=== PATIENT | male | born 1950 | race Caucasian/White ===

== ENCOUNTER → 2019-03-15 07:31 | Outpatient (CLI) | payer OTHER, MEDICARE, SELFPAY ==
[2019-03-15 08:30] LABS: Hemoglobin A1C% w Est Avg Glu 5.7 % (4.0-6.0)
[2019-03-15 08:35] LABS: Cholesterol 234 mg/dL (140-199); Glucose 109 mg/dL (80-110); HDL Cholesterol 29 mg/dL (40-60); LDL Cholesterol Calculated 153 mg/dL (<100); Triglycerides 261 mg/dL (35-150)
[2019-03-15 08:59] LABS: Prostate Specific Antigen 0.654 ng/mL (0.10-4.00)
== END ==
PROVIDERS: PCP Internal Medicine; Referring Provider Internal Medicine; Visit Provider Internal Medicine
DX: Z00.00 Encounter for general adult medical examination without abnormal findings (principal); R73.01 Impaired fasting glucose; E78.2 Mixed hyperlipidemia; R03.0 Elevated blood-pressure reading, without diagnosis of hypertension
CPT/HCPCS: 36415; 80048; 80061; 82947; 83036; 84153; 84450

== ENCOUNTER 2022-12-29 16:41 | Emergency (ER) | payer MEDICARE, OTHER, SELFPAY ==
[2022-12-29 16:48] VITALS: BP 175/95; PULSE 98; RESP 20; TEMP 37.3; O2SAT 96; BMI 30.8
[2022-12-29] MEDS: KETOROLAC 30 MG/ML VIAL 15 MG IM (17:09)
--- NOTE | 2022-12-29 18:17 | ED_ITS ---
HPI - Neck Pain/Injury General Chief Complaint: Neck Pain/Injury Stated Complaint: Neck pain and stiffness Time Seen by Provider: 12/29/22 17:57 Source: patient Mode of arrival: Family Vehicle Limitations: no limitations History of Present Illness HPI Narrative: 72-year-old male who woke up yesterday morning with discomfort on the left side of his neck. He states that he was able to do things yesterday that he wanted to which included raking quite a bit of rock and then chopping quite a bit of wood. Has a day went on he got quite a bit of neck discomfort. Has on the left side of his neck. No extremity pain. No numbness or tingling his arms and legs. No upper back or lower back discomfort. He did take a Flexeril prior to arrival and also ibuprofen without any improvement. Related Data Home Medications Medication Instructions Recorded Confirmed MULTIVITAMIN 1 cap PO QDAY ##0 03/01/12 OMEGA-3 FATTY ACIDS (#OMEGA-3 2100) 1,050 mg PO ##0 03/01/12 cholecalciferol (vitamin D3) 50 2,000 unit PO QDAY ##0 03/01/12 mcg (2,000 unit) capsule (Vitamin D3) Previous Rx's Medication Instructions Recorded ketorolac 10 mg tablet 10 mg PO Q8H PRN pain 3 days #21 12/29/22 tabs Allergies Allergy/AdvReac Type Severity Reaction Status Date / Time No Known Drug Allergies Allergy Verified 12/29/22 16:55 Review of Systems Constitutional Constitutional: Reports system reviewed and no additional complaints, except as documented Musculoskeletal Musculoskeletal: Reports system reviewed and no additional complaints, except as documented Integumentary/Breasts Skin/Breast: Reports system reviewed and no additional complaints, except as documented Neurologic Neurologic: Reports system reviewed and no additional complaints, except as documented Hematologic/Lymphatic On Anticoagulants: No Patient History Social History Smoking Status: Former smoker Smoking Status: Former smoker tobacco type: cigarettes alcohol intake frequency: holidays/special occasions only Substance Use Type: does not use Exam Initial Vital Signs Initial Vital Signs: Vital Signs Temperature 99.1 F 12/29/22 16:48 Pulse Rate 98 H 12/29/22 16:48 Respiratory Rate 20 12/29/22 16:48 Blood Pressure 175/95 H 12/29/22 16:48 Pulse Oximetry 96 12/29/22 16:48 Oxygen Delivery Method Room Air 12/29/22 16:48 [facility] Head: normal to inspection and normocephalic Back/Spine/Pelvis Cervical Spine: cervical muscular tenderness and No cervical spinal tenderness Thoracic/Lumbar Spine: No paraspinal tenderness and No lumbar spinal tenderness Skin General: no rashes or lesions noted Neuro General: patient alert and moves all extremities Extrem General: capillary refill normal Course Orders Ordered: Discontinued Medications Ketorolac Tromethamine (Ketorolac 30 Mg/Ml Vial) 15 mg IM NOW ONE Stop: 12/29/22 17:02 Last Admin: 12/29/22 17:09 Dose: 15 mg Documented By: BELEN Vital Signs Vital signs: Vital Signs - 8 hr 12/29/22 16:48 12/29/22 18:33 Temperature 99.1 F Pulse Rate 98 H 78 Respiratory Rate 20 16 Blood Pressure 175/95 H Pulse Oximetry 96 99 Oxygen Delivery Method Room Air Room Air MDM - Neck Pain/Injury MDM Narrative Medical decision making narrative: Patient clearly has cervical muscle tenderness on the left side. Low suspicion for fracture. No indication for radiologic studies. He is no radicular symptoms. He reports that his symptoms have improved quite a bit with the Toradol. Patient deny the offer for Flexeril. Did not want any pain medication. 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 He has Mobic at home that he can take this evening. He was given return precautions. He expressed understanding and agreement. Discharge Plan Departure Patient Disposition: Home Clinical Impression: Strain of neck muscle Instructions: Muscle Strain Activity Restrictions/Additional Instructions: I do recommend that you continue with conservative measures such as heat/ice and massage. You can continue with anti-inflammatories. A prescription was sent to [facility]. Return to the emergency department for new symptoms. Prescriptions: New ketorolac 10 mg tablet 10 mg PO Q8H PRN (Reason: pain) 3 Days Qty: 21 0RF No Action MULTIVITAMIN 1 cap PO QDAY Qty: 0 OMEGA-3 FATTY ACIDS (#OMEGA-3 2100) 1,050 mg PO Qty: 0 cholecalciferol (vitamin D3) [Vitamin D3] 2,000 UNIT capsule 2,000 unit PO QDAY Qty: 0 Referrals: Dex Vasquez MD [Primary Care Provider] - Stand Alone Forms: Patient Portal/API
[2022-12-29 18:33] VITALS: PULSE 78; RESP 16; O2SAT 99
== END 2022-12-29 18:34 | disposition home or self-care (01) ==
PROVIDERS: Emergency Provider Emergency Medicine; PCP Internal Medicine
DX: S16.1XXA Strain of muscle, fascia and tendon at neck level, initial encounter (principal); X50.9XXA Other and unspecified overexertion or strenuous movements or postures, initial encounter
CPT/HCPCS: 99283; J1885

== ENCOUNTER 2024-03-21 14:53 | Emergency (ER) | payer MEDICARE, OTHER, SELFPAY ==
[2024-03-21 15:21] VITALS: BP 138/81; PULSE 92; RESP 16; O2SAT 93; BMI 31.4
--- NOTE | 2024-03-21 15:29 | DI.RAD.S_ITS ---
PROCEDURE: XR KNEE LT 3V INDICATIONS: fall TECHNIQUE: 2 views of the knee were acquired. COMPARISON: None. FINDINGS: Bones: There is prior internal fixation of proximal left tibial shaft with surgical hardware in place. No gross hardware loosening or failure. Moderate to severe tricompartmental osteoarthritis is seen most notably in lateral femoral tibial compartment. No acute fracture or dislocation. Soft tissues: Moderate to large suprapatellar joint effusion. No suspicious soft tissue calcifications. IMPRESSION: 1. No gross acute left knee fracture or dislocation. Prior left total knee arthroplasty. No evidence of hardware loosening or failure. 2. Suggestion of healing fracture involving lateral tibial plateau. Moderate to severe tricompartmental osteoarthritis. Large suprapatellar joint effusion. Dictated by: Venkata Larsen M.D. on 03/21/2024 at 16:34 Approved by: Venkata Larsen M.D. on 03/21/2024 at 16:36
--- NOTE | 2024-03-21 15:30 | DI.RAD.S_ITS ---
PROCEDURE: XR TIBIA FIBULA LT 2V INDICATIONS: fall TECHNIQUE: 2 views of the tibia and fibula were acquired. COMPARISON: None. FINDINGS: Bones: Prior ORIF of proximal tibial shaft with healing fracture involving lateral tibial plateau. No gross hardware loosening or failure. No mid to distal lower leg fracture or dislocation. Soft tissues: No suspicious soft tissue calcifications or masses. IMPRESSION: Healing lateral tibial plateau fracture with prior ORIF. No gross hardware loosening or failure. No other fracture or dislocation is seen in left lower leg. Dictated by: Venkata Larsen M.D. on 03/21/2024 at 16:36 Approved by: Venkata Larsen M.D. on 03/21/2024 at 16:37
--- NOTE | 2024-03-21 15:31 | DI.RAD.S_ITS ---
PROCEDURE: XR FEMUR LT MIN 2V INDICATIONS: fall TECHNIQUE: 4 views of the femur were acquired. COMPARISON: None. FINDINGS: Bones: No fractures or dislocations. Left hip and left knee joint osteoarthritic changes are seen. No evidence of avascular necrosis of femoral head. No suspicious bony lesions. Soft tissues: No suspicious soft tissue calcifications or masses. IMPRESSION: No acute left femoral fracture or dislocation. No evidence of avascular necrosis of femoral head. Dictated by: Venkata Larsen M.D. on 03/21/2024 at 16:37 Approved by: Venkata Larsen M.D. on 03/21/2024 at 16:38
--- NOTE | 2024-03-21 15:32 | DI.RAD.S_ITS ---
PROCEDURE: XR SHOULDER RT MIN 2V INDICATIONS: fall TECHNIQUE: 3 views of the shoulder were acquired. COMPARISON: None. FINDINGS: Bones: No fractures or dislocations. [id number] right acromioclavicular joint and glenohumeral joint osteoarthritic changes are seen. No suspicious bony lesions. Visualized ribs appear intact. Soft tissues: No suspicious soft tissue calcifications. IMPRESSION: [id number]-[id number] right shoulder joint osteoarthritis. No fracture or dislocation. No gross soft tissue abnormalities. Dictated by: Venkata Larsen M.D. on 03/21/2024 at 16:38 Approved by: Venkata Larsen M.D. on 03/21/2024 at 16:38
--- NOTE | 2024-03-21 18:20 | ED.LOWEXIN ---
HPI - Extremity Injury (Lower) <Myrtle Bruno PA-C - Last Filed: 03/21/24 21:13> General Chief Complaint: Extremity Injury, Lower Stated Complaint: fall, knee and shoulder px, no blood thinners Time Seen by Provider: 03/21/24 18:19 History of Present Illness HPI Narrative: Mr. Alex Ordonez is a very pleasant 73-year-old male with a past medical history of left knee surgery with hardware 45 years ago who presents to the emergency department for a slip and fall on his left knee and right shoulder that occurred 2 days ago. Patient reports he slipped on ice just in front of his house and he caught himself using his left knee and also extended his right arm causing right shoulder pain. No right hand, wrist, or elbow pain. States of the right shoulder pain is most significant when he abducts his shoulder greater than 90?. Says the left knee is always swollen at baseline however it is more swollen and he has severe pain with bending or moving of the knee but at rest there is no pain. He is not interested in pain medication. He did not hit his head or lose consciousness or sustain any other injuries. No CP, SOB, dizziness, lightheadeness, neck pain, or fevers. Related Data Home Medications Medication Instructions Recorded Confirmed MULTIVITAMIN 1 cap PO QDAY ##0 03/01/12 OMEGA-3 FATTY ACIDS (#OMEGA-3 2100) 1,050 mg PO ##0 03/01/12 cholecalciferol (vitamin D3) 50 2,000 unit PO QDAY ##0 03/01/12 mcg (2,000 unit) capsule (Vitamin D3) Previous Rx's Medication Instructions Recorded methocarbamol 500 mg tablet 500 mg PO TID PRN muscle spasm #14 03/21/24 tabs Allergies Allergy/AdvReac Type Severity Reaction Status Date / Time No Known Drug Allergies Allergy Verified 12/29/22 16:55 Review of Systems <Myrtle Bruno PA-C - Last Filed: 03/21/24 21:13> Review of Systems ROS Unobtainable: All systems reviewed & are unremarkable except as noted in HPI and below Patient History <Myrtle Bruno PA-C - Last Filed: 03/21/24 21:13> Social History Smoking Status: Former smoker Smoking Status: Former smoker tobacco type: cigarettes alcohol intake frequency: holidays/special occasions only Exam <Myrtle Bruno PA-C - Last Filed: 03/21/24 21:13> Narrative Exam Narrative: GENERAL: 73 year old patient appears stated age. Well-developed patient, in no acute distress. HEAD: Atraumatic. Normocephalic. NECK: Trachea midline. Cervical ROM intact. No midline tenderness. CARDIOVASCULAR: Regular rate. Strong radial pulses bilaterally, DP and PT pulses bilaterally. RESPIRATORY: ?Nonlabored respirations. ?Speaking in clear, full sentences. GASTROINTESTINAL: Abdomen soft, non-tender, nondistended. EXTREMITIES: Left knee with significant diffuse edema. Pain with even minimal active or passive flexion of the left knee, generalized tenderness to palpation of anterior left knee but most prominent on the medial aspect of the anterior joint line. Exam limited secondary to pain. No overlying lacerations or breaks in the skin. Positive right-sided empty can test with both weakness and pain in the right shoulder. Patient unable to fully abduct right shoulder. No tenderness to palpation of the shoulder itself. No snuffbox tenderness on the bilateral hands. BACK: No midline spinal tenderness. NEURO: AOx3. ?Clear speech. ?Sensation intact to light touch on the bilateral upper and lower extremities. SKIN: No rash or erythema of visible areas Initial Vital Signs Initial Vital Signs: Vital Signs Pulse Rate 92 H 03/21/24 15:21 Respiratory Rate 16 03/21/24 15:21 Blood Pressure 138/81 03/21/24 15:21 Pulse Oximetry 93 03/21/24 15:21 Oxygen Delivery Method Room Air 03/21/24 15:21 <Mando Kate MD - Last Filed: 03/22/24 05:23> Initial Vital Signs Initial Vital Signs: Vital Signs Pulse Rate 92 H 03/21/24 15:21 Respiratory Rate 16 03/21/24 15:21 Blood Pressure 138/81 03/21/24 15:21 Pulse Oximetry 93 03/21/24 15:21 Oxygen Delivery Method Room Air 03/21/24 15:21 Course <Myrtle Bruno PA-C - Last Filed: 03/21/24 21:13> Orders Ordered: Discontinued Medications Methocarbamol (Methocarbamol 500 Mg Tablet) 1,000 mg PO NOW ONE Stop: 03/21/24 19:39 Last Admin: 03/21/24 19:43 Dose: 1,000 mg Documented By: CIPRIANO Consultations Consultation #1: Discussed case and imaging findings with orthopedic surgeon on-call Dr. Garcia. He reviewed the patient's x-rays and does not suspect an acute fracture of the tibia despite the radiologist interpreting possible healing fracture involving the lateral tibial plateau. Dr. Garcia did explain that even if there was a lateral tibial plateau fracture it would not change the management of this patient. This patient is a candidate appropriate for a total knee replacement on the left side as he has extensive chronic disease. Recommends Naif wrap or brace, supportive care, follow up outpatient. Patient can weight bear as tolerated. Time: 18:50 Vital Signs Vital signs: Vital Signs - 8 hr 03/21/24 15:21 03/21/24 20:06 Pulse Rate 92 H 89 Respiratory Rate 16 16 Blood Pressure 138/81 134/78 Pulse Oximetry 93 95 Oxygen Delivery Method Room Air Room Air <Mando Kate MD - Last Filed: 03/22/24 05:23> Orders Ordered: Discontinued Medications Methocarbamol (Methocarbamol 500 Mg Tablet) 1,000 mg PO NOW ONE Stop: 03/21/24 19:39 Last Admin: 03/21/24 19:43 Dose: 1,000 mg Documented By: CIPRIANO Vital Signs Vital signs: Vital Signs - 8 hr 03/21/24 15:21 03/21/24 20:06 Pulse Rate 92 H 89 Respiratory Rate 16 16 Blood Pressure 138/81 134/78 Pulse Oximetry 93 95 Oxygen Delivery Method Room Air Room Air MDM - Extremity Injury (Lower) <Myrtle Bruno PA-C - Last Filed: 03/21/24 21:13> Medical Records Attestation: I reviewed the patient's medical records. Imaging Data Right Shoulder X-Ray; Left Femur X-Ray; Left Tib/Fib X-Ray; Left Knee X-Ray: Radiologist's Impression: PROCEDURE: XR SHOULDER RT MIN 2V INDICATIONS: fall TECHNIQUE: 3 views of the shoulder were acquired. COMPARISON: None. FINDINGS: Bones: No fractures or dislocations. Vgfe-yq-[id number] right acromioclavicular joint and glenohumeral joint osteoarthritic changes are seen. No suspicious bony lesions. Visualized ribs appear intact. Soft tissues: No suspicious soft tissue calcifications. IMPRESSION: Znvj-xe-ihsyqisg right shoulder joint osteoarthritis. No fracture or dislocation. No gross soft tissue abnormalities. PROCEDURE: XR FEMUR LT MIN 2V INDICATIONS: fall TECHNIQUE: 4 views of the femur were acquired. COMPARISON: None. FINDINGS: Bones: No fractures or dislocations. Left hip and left knee joint osteoarthritic changes are seen. No evidence of avascular necrosis of femoral head. No suspicious bony lesions. Soft tissues: No suspicious soft tissue calcifications or masses. IMPRESSION: No acute left femoral fracture or dislocation. No evidence of avascular necrosis of femoral head. PROCEDURE: XR TIBIA FIBULA LT 2V INDICATIONS: fall TECHNIQUE: 2 views of the tibia and fibula were acquired. COMPARISON: None. FINDINGS: Bones: Prior ORIF of proximal tibial shaft with healing fracture involving lateral tibial plateau. No gross hardware loosening or failure. No mid to distal lower leg fracture or dislocation. Soft tissues: No suspicious soft tissue calcifications or masses. IMPRESSION: Healing lateral tibial plateau fracture with prior ORIF. No gross hardware loosening or failure. No other fracture or dislocation is seen in left lower leg. PROCEDURE: XR KNEE LT 3V INDICATIONS: fall TECHNIQUE: 2 views of the knee were acquired. COMPARISON: None. FINDINGS: Bones: There is prior internal fixation of proximal left tibial shaft with surgical hardware in place. No gross hardware loosening or failure. Moderate to severe tricompartmental osteoarthritis is seen most notably in lateral femoral tibial compartment. No acute fracture or dislocation. Soft tissues: Moderate to large suprapatellar joint effusion. No suspicious soft tissue calcifications. IMPRESSION: 1. No gross acute left knee fracture or dislocation. Prior left total knee arthroplasty. No evidence of hardware loosening or failure. 2. Suggestion of healing fracture involving lateral tibial plateau. Moderate to severe tricompartmental osteoarthritis. Large suprapatellar joint effusion. MDM Narrative Medical decision making narrative: 73-year-old male with a past medical history of left knee surgery with hardware 45 years ago who presents to the emergency department for a slip and fall on his left knee and right shoulder that occurred 2 days ago. Differential diagnosis includes but is not limited to left knee fracture, left knee effusion, left knee traumatic bursitis, left knee ligament tear, left knee meniscus injury, left knee sprain/strain, right shoulder strain, right shoulder sprain, right shoulder muscle spasm, right rotator cuff tear or injury, etc. On exam the patient is in no acute distress, nontoxic appearing, vital signs appropriate. He is significant swelling of the left knee however lower extremity compartments are soft. He is diffuse tenderness to palpation of the left knee but it is most focused on the medial aspect of the knee, no obvious reproducible joint laxity however exam is extremely limited as patient has significant pain with even slight flexion of the left knee. He has no pain with lying with the knee straight. Right shoulder exam reveals a positive empty can test and difficulty with active abduction of the shoulder concerning for a rotator cuff injury. No pain to palpation of the shoulder itself. Patient declines the need for pain medication. X-rays were obtained in triage of the left knee left tib-fib left femur in the right shoulder. X-rays overall reveal no acute fractures, there is a large suprapatellar joint effusion and there is suggestion of a healing lateral tibial plateau fracture. Patient has extensive osteoarthritis on all x-rays. I did discuss the case with the orthopedic surgeon on-call specifically to address the potential healing fracture of the lateral tibial plateau. Orthopedics recommended supportive care and follow up in the office, patient was provided with a left knee immobilizer for support as knee is extremely painful if bend. He is crutches at home but also has a walker at home that he will use to walk. His right shoulder muscles are starting to spasm and he declines a sling for the arm but he is interested in oral muscle relaxers. He was provided with a dose of Robaxin in the emergency department and a prescription as well, discussed risks of muscle relaxers. Recommended rice therapy, ibuprofen/Tylenol, follow up with Orthopedics, strict ED return precautions discussed. Patient verbalized understanding of all information is agreeable to the plan. He is stable for discharge home. Discharge Plan Departure Patient Disposition: Home Clinical Impression: Effusion of left knee Fall from slipping on ice Qualifiers: Encounter type: initial encounter Qualified Code(s): W00.9XXA - Unspecified fall due to ice and snow, initial encounter Strain of left knee Qualifiers: Encounter type: initial encounter Qualified Code(s): S86.912A - Strain of unspecified muscle(s) and tendon(s) at lower leg level, left leg, initial encounter Right shoulder strain Qualifiers: Encounter type: initial encounter Qualified Code(s): S46.911A - Strain of unspecified muscle, fascia and tendon at shoulder and upper arm level, right arm, initial encounter Instructions: DI for Knee Pain Activity Restrictions/Additional Instructions: Dear Mr. Alex Ordonez, Thank you for coming to the emergency department today. Today we obtained x-rays of your right shoulder and left knee. Your left knee was placed into a knee immobilizer and I recommend that use a walker to help you with walking. You have been prescribed a course of muscle relaxers to help with muscle spasms of the right shoulder but I do suspect that you have a right rotator cuff injury. It is very important to follow up with orthopedic doctor for further evaluation as you will need a left knee replacement at some point. Please use RICE therapy for your pain in addition to ibuprofen/acetaminophen. Rest the painful area. Ice the area of pain/swelling for at least 15 minutes, 4x a day. Compress the area of swelling using a brace, wrap, or splint if applied. Elevate the painful or swollen extremity by supporting it above the level of the heart with pillows when sitting or laying. Please take Ibuprofen (Motrin/Advil) or Acetaminophen (Tylenol) for pain. These are available over the counter. You may take Ibuprofen 600 mg every 8 hours with food for pain. You may also take Acetaminophen 650 mg every 4-6 hours for pain. Do not exceed 3000 mg of Tylenol a day as this can cause liver damage. Do not drink alcohol with either of these medications. Muscle relaxers can make you drowsy so do not drink alcohol, drive a car operate heavy machinery while taking these. Please call to schedule an appointment with [facility] [phone] Dr. Garcia for further management. Please follow up with your primary care doctor within the next 2-3 days for ER follow-up. (If you do not have a PCP you can call [phone]. ?to schedule an appointment with an [facility] Primary Care Provider) IF YOU DEVELOP ANY NEW OR WORSENING SYMPTOMS, RETURN TO THE ER! Please read the attached instructions, they highlight more specific treatments and interventions for you at home. Thank you for letting me participate in your care, Myrtle Bruno PA-C Prescriptions: New methocarbamol 500 mg tablet 500 mg PO TID PRN (Reason: muscle spasm) Qty: 14 0RF No Action MULTIVITAMIN 1 cap PO QDAY Qty: 0 OMEGA-3 FATTY ACIDS (#OMEGA-3 2100) 1,050 mg PO Qty: 0 cholecalciferol (vitamin D3) [Vitamin D3] 2,000 UNIT capsule 2,000 unit PO QDAY Qty: 0 Referrals: Dex Vasquez MD [Primary Care Provider] - Leroy Garcia MD [Physician] - (L knee needs replaced. Fall w/ L knee and R shoulder injury ) Stand Alone Forms: Patient Portal/API/Survey ED Sign-out <Mando Kate MD - Last Filed: 03/22/24 05:23> Cosign ED Attending Cosignature Attestation: I was immediately available in the department for consultation. This documentation has been reviewed and I agree with assessment and plan. Supervised by Mando Kate MD
[2024-03-21] MEDS: methocarbamoL 500 MG TABLET 1000 MG PO (19:43)
[2024-03-21 20:06] VITALS: BP 134/78; PULSE 89; RESP 16; O2SAT 95
== END 2024-03-21 20:07 | disposition home or self-care (01) ==
PROVIDERS: Emergency Provider Physician Assistant; PCP Internal Medicine
DX: S86.912A Strain of unspecified muscle(s) and tendon(s) at lower leg level, left leg, initial encounter (principal); S46.911A Strain of unspecified muscle, fascia and tendon at shoulder and upper arm level, right arm, initial encounter; M17.12 Unilateral primary osteoarthritis, left knee; M19.011 Primary osteoarthritis, right shoulder; W00.0XXA Fall on same level due to ice and snow, initial encounter; Z96.652 Presence of left artificial knee joint
CPT/HCPCS: 73030; 73552; 73560; 73590; 99283

== ENCOUNTER → 2024-07-11 09:19 | Outpatient (CLI) | payer MEDICARE, SELFPAY ==
--- NOTE | 2024-07-11 09:21 | DI.RAD.S_ITS ---
PROCEDURE: XR CHEST 2V INDICATIONS: Cough, unspecified TECHNIQUE: 2 views of the chest were acquired. COMPARISON: None. FINDINGS: Surgical changes and devices: None. Lungs and pleura: Lungs are clear. No pleural effusions or pneumothorax. Peribronchial cuffing. Mediastinum: Mediastinal contours are normal. Heart size is normal. Bones and chest wall: No suspicious bony abnormalities. Soft tissues appear unremarkable. IMPRESSION: Peribronchial cuffing, typically indicating infectious or inflammatory bronchitis. Dictated by: Bakari Begum M.D. on 07/11/2024 at 12:04 Approved by: Bakari Begum M.D. on 07/11/2024 at 12:04
== END ==
PROVIDERS: PCP Internal Medicine; Referring Provider Family Medicine; Visit Provider Family Medicine
DX: R05.9 Cough, unspecified (principal)
CPT/HCPCS: 71046